=== PATIENT | male | born 1965 | race Caucasian/White ===

== ENCOUNTER 2021-05-07 18:49 | Emergency (ER) | payer OTHER ==
[~2021-05-07 18:49] MED LIST: ALBUTEROL0.63 MG/3 INH; AMLODIPINE BESY10 MG PO; ASPIR 8181 MG PO; DULERA 100 MCG8.8 GM INH; FLOMAX 0.4 MG0.4 MG PO; HYDRALAZINE HCL25 MG PO; IPRAT-ALBUT 0.5-3 ML NEB; LEVAQUIN500 MG PO; LISINOPRIL30 MG PO; MEDROL TAB 4 MG4 MG PO; METOPROLOL SUCC25 MG PO; MIRTAZAPINE30 MG PO; OXYCODONE HCL10 MG PO; SIMVASTATIN20 MG PO; VITAMIN D250 MCG PO
[2021-05-07 20:01] LABS: RED BLOOD COUNT 4.69 M/UL (4.20-5.50); WHITE BLOOD COUNT 9.3 K/UL (4.5-11.0)
[2021-05-07 20:31] LABS: BUN/CREATININE RATIO 13 (0-10)
[2021-05-07] MEDS ORDERED: ZOFRAN ODT 4 MG4 MG PO (22:38)
== END 2021-05-07 22:45 | disposition home or self-care (01) ==
LOC: ER1 18:49
PROVIDERS: Physician Assistant
DX: H53.129 Transient visual loss, unspecified eye (principal); R51.9 Headache, unspecified; E78.5 Hyperlipidemia, unspecified; I25.10 Atherosclerotic heart disease of native coronary artery without angina pectoris; I10 Essential (primary) hypertension; F17.210 Nicotine dependence, cigarettes, uncomplicated; Z88.6 Allergy status to analgesic agent
CPT/HCPCS: 70496; 70498; 80053; 82550; 82553; 83874; 84484; 85025; 85610; 85730; 93005; 96374; 96375; 99284; J2270; J2405; Q9967